=== PATIENT | female | born 1930 | race Caucasian/White ===

== ENCOUNTER 2016-11-06 07:11 | Emergency (ER) | payer OTHER ==
[~2016-11-06 07:11] MED LIST: ENAL5TAB PO; METO25; PRAV20 PO
[2016-11-06 07:14] VITALS: BP 186/103; PULSE 72; RESP 17; TEMP 97.5; O2SAT 99
[2016-11-06] MEDS ORDERED: CYCLOBENZAPRINE HCL 10 MG TAB PO ONE (07:30)
[2016-11-06] MEDS ORDERED: oxyCODONE/ACETAMINOPHEN 5 MG/325 MG TAB PO ONE (07:30)
--- NOTE | 2016-11-06 07:39 | PD ---
HPI Chief Complaint: Back/ Neck Pain or Injury Time Seen by Provider: 07:30 Travel History International Travel<30 days: No Contact w/Intl Traveler<30days: No Traveled to known affect area: No History of Present Illness HPI Patient is an 86-year-old female who presents to emergency room with complaints of left-sided scapular pain. Patient reports that her symptoms began after she helped bring her friends to the hospital. Patient reports that she had to assist her friend as her friend was having difficulty with ambulation, reports that shortly thereafter, she began to have increased pains to her left scapula. Patient reports that she has been having pain with range of motion and movement to her left scapula. Denies fever/chills. Denies chest pain/sob. Reports that pain is intermittent in nature. PFSH Past Medical History Arthritis: Yes (HANDS) Heart Rhythm Problems: No Cancer: Yes (SKIN/CHEEK) Cardiovascular Problems: Yes High Cholesterol: Yes Congestive Heart Failure: No Diminished Hearing: No Endocrine: No Gastrointestinal Disorders: Yes (POSSIBLE GALLSTONES) Genitourinary: No Hypertension: Yes Immune Disorder: No Musculoskeletal: Yes Neurologic: No Psychiatric: No Reproductive: No Respiratory: No Influenza Vaccination: No ?: Not Menopausal: Yes Ovarian Cysts: Yes (OVERY REMOVED IN HER TWENTIES) Past Surgical History Abdominal Surgery: Yes (APPEDIX, REV=MOVAL OF OVERIES) Appendectomy: Yes Cardiac Surgery: No Hysterectomy: Yes (one ovary) Oral Surgery: No Social History Alcohol Use: Yes (ONE WINE DAILY) Tobacco Use: No (quit 30 years ago) Substance Use: No Allergies-Medications (Allergen,Severity, Reaction): Coded Allergies: No Known Allergies (Verified , 11/06/16) Reported Meds & Prescriptions Reported Meds & Active Scripts Active Ibuprofen 600 Mg Tab 600 Mg PO Q6H PRN Lortab (Hydrocodone-Acetaminophen) 5-325 Mg Tab 1 Tab PO Q4H PRN Flexeril (Cyclobenzaprine HCl) 5 Mg Tab 5 Mg PO TID Reported Metoprolol Tartrate 25 Mg Tab 25 Mg PO DAILY Review of Systems General / Constitutional: No: Fever Eyes: No: Visual changes HENT: No: Headaches Cardiovascular: No: Chest Pain or Discomfort Respiratory: No: Shortness of Breath Gastrointestinal: No: Abdominal Pain Genitourinary: No: Dysuria Musculoskeletal: Positive: Pain (left sided scapula pain) Skin: No Rash Neurologic: No: Weakness Psychiatric: No: Depression Endocrine: No: Polydipsia Hematologic/Lymphatic: No: Easy Bruising Physical Exam Narrative GENERAL: mild distress, nontoxic SKIN: Focused skin assessment warm/dry. HEAD: Atraumatic. Normocephalic. NECK: Trachea midline. No JVD. CARDIOVASCULAR: Regular rate and rhythm. No murmur appreciated. Patient with point tenderness to left scapula RESPIRATORY: No accessory muscle use. Clear to auscultation. Breath sounds equal bilaterally. GASTROINTESTINAL: Abdomen soft, non-tender, nondistended. Hepatic and splenic margins not palpable. MUSCULOSKELETAL: No obvious deformities. No clubbing. No cyanosis. No edema. NEUROLOGICAL: Awake and alert. No obvious cranial nerve deficits. Motor grossly within normal limits. Normal speech. PSYCHIATRIC: Appropriate mood and affect; insight and judgment normal. Data Data Last Documented VS Vital Signs Date Time Temp Pulse Resp B/P Pulse Ox O2 Delivery O2 Flow Rate FiO2 11/06/16 08:35 64 16 156/86 96 Room Air 195/103 11/06/16 07:14 97.5 Orders Ecg Monitoring (11/06/16 07:30) Bilateral Bp Monitoring (11/06/16 07:30) Oximetry (11/06/16 07:30) Chest, Pa & Lat (11/06/16 07:30) Oxycodone-Acetamin 5-325 Mg (Percocet (11/06/16 07:30) Cyclobenzaprine (Flexeril) (11/06/16 07:30) Basic Metabolic Panel (Bmp) (11/06/16 07:34) Complete Blood Count With Diff (11/06/16 07:34) Prothrombin Time / Inr (Pt) (11/06/16 07:34) Act Partial Throm Time (Ptt) (11/06/16 07:34) Sodium Chloride 0.9% Flush (Ns Flush) (11/06/16 07:45) Cta Thor Abd Aorta W Iv C W3d (11/06/16 08:44) Iohexol 350 Inj (Omnipaque 350 Inj) (11/06/16 09:55) Labs Laboratory Tests Test 11/06/16 07:50 White Blood Count 5.5 TH/MM3 Red Blood Count 5.03 MIL/MM3 Hemoglobin 15.5 GM/DL Hematocrit 46.1 % Mean Corpuscular Volume 91.7 FL Mean Corpuscular Hemoglobin 30.8 PG Mean Corpuscular Hemoglobin 33.6 % Concent Red Cell Distribution Width 12.6 % Platelet Count 189 TH/MM3 Mean Platelet Volume 7.6 FL Neutrophils (%) (Auto) 55.0 % Lymphocytes (%) (Auto) 32.6 % Monocytes (%) (Auto) 8.6 % Eosinophils (%) (Auto) 2.0 % Basophils (%) (Auto) 1.8 % Neutrophils # (Auto) 3.0 TH/MM3 Lymphocytes # (Auto) 1.8 TH/MM3 Monocytes # (Auto) 0.5 TH/MM3 Eosinophils # (Auto) 0.1 TH/MM3 Basophils # (Auto) 0.1 TH/MM3 CBC Comment DIFF FINAL Differential Comment Prothrombin Time 10.9 SEC Prothromb Time International 1.0 RATIO Ratio Activated Partial 25.6 SEC Thromboplast Time Sodium Level 136 MEQ/L Potassium Level 4.2 MEQ/L Chloride Level 102 MEQ/L Carbon Dioxide Level 26.3 MEQ/L Anion Gap 8 MEQ/L Blood Urea Nitrogen 17 MG/DL Creatinine 0.83 MG/DL Estimat Glomerular Filtration 65 ML/MIN Rate Random Glucose 119 MG/DL Calcium Level 9.3 MG/DL [facility] Medical Decision Making Medical Screen Exam Complete: Yes Emergency Medical Condition: Yes Interpretation(s) Vital Signs Date Time Temp Pulse Resp B/P Pulse Ox O2 Delivery O2 Flow Rate FiO2 11/06/16 07:14 97.5 72 17 186/103 99 Differential Diagnosis Left-sided scapular muscle strain, Aortic dissection (though unlikely), muscle strain, pneumothorax (though unlikely) Narrative Course Patient is an 86-year-old female who presents to emergency room with complaints of left sided scapular muscle skeletal pain. Patient reports that she was helping her friend ambulate to the emergency room yesterday around 5 PM, reports that shortly thereafter, she had increased pain to her left scapula. Reports that she thinks she may have pulled a muscle. Reports intermittent pain , she has not taken any pain medications at this time. Plan to give patient a dose of narcotic pain medication as well as muscle relaxor. Will x-ray the chest and obtain labs Laboratory Tests Test 11/06/16 07:50 White Blood Count 5.5 TH/MM3 (4.0-11.0) Red Blood Count 5.03 MIL/MM3 (4.00-5.30) Hemoglobin 15.5 GM/DL (11.6-15.3) Hematocrit 46.1 % (35.0-46.0) Mean Corpuscular Volume 91.7 FL (80.0-100.0) Mean Corpuscular Hemoglobin 30.8 PG (27.0-34.0) Mean Corpuscular Hemoglobin 33.6 % Concent (32.0-36.0) Red Cell Distribution Width 12.6 % (11.6-17.2) Platelet Count 189 TH/MM3 (150-450) Mean Platelet Volume 7.6 FL (7.0-11.0) Neutrophils (%) (Auto) 55.0 % (16.0-70.0) Lymphocytes (%) (Auto) 32.6 % (9.0-44.0) Monocytes (%) (Auto) 8.6 % (0.0-8.0) Eosinophils (%) (Auto) 2.0 % (0.0-4.0) Basophils (%) (Auto) 1.8 % (0.0-2.0) Neutrophils # (Auto) 3.0 TH/MM3 (1.8-7.7) Lymphocytes # (Auto) 1.8 TH/MM3 (1.0-4.8) Monocytes # (Auto) 0.5 TH/MM3 (0-0.9) Eosinophils # (Auto) 0.1 TH/MM3 (0-0.4) Basophils # (Auto) 0.1 TH/MM3 (0-0.2) CBC Comment DIFF FINAL Differential Comment Prothrombin Time 10.9 SEC (9.8-11.6) Prothromb Time International 1.0 RATIO Ratio Activated Partial 25.6 SEC Thromboplast Time (24.3-30.1) Sodium Level 136 MEQ/L (136-145) Potassium Level 4.2 MEQ/L (3.5-5.1) Chloride Level 102 MEQ/L (98-107) Carbon Dioxide Level 26.3 MEQ/L (21.0-32.0) Anion Gap 8 MEQ/L (5-15) Blood Urea Nitrogen 17 MG/DL (7-18) Creatinine 0.83 MG/DL (0.50-1.00) Estimat Glomerular Filtration 65 ML/MIN (>89) Rate Random Glucose 119 MG/DL (74-106) Calcium Level 9.3 MG/DL (8.5-10.1) Vital Signs Date Time Temp Pulse Resp B/P Pulse Ox O2 Delivery O2 Flow Rate FiO2 11/06/16 07:14 97.5 72 17 186/103 99 Last Impressions Chest X-Ray 11/06/16 0730 Signed Impressions: Service Date/Time: Sunday, November 06, 2016 07:41 - CONCLUSION: No acute disease. Norm Farmer MD Patient reevaluated, patient reports that she is feeling much better at this time. Patient reports complete resolution of symptoms. Labs as well as x-ray reviewed. Patient with no widened mediastinum on chest x-ray. Patient with point tenderness to her left scapula, pain began after she helped her friends who was "heavy" - pain most likely muscle skeletal nature. Plan to send patient home on pain medications and muscle relaxants. Will have patient return to emergency room if symptoms progress or worsen B/L arm BP: LUE: 156/86 RUE: 195/103 CTA ordered to evaluate for possible dissection Last Impressions Chest X-Ray 11/06/16 0730 Signed Impressions: Service Date/Time: Sunday, November 06, 2016 07:41 - CONCLUSION: No acute disease. Norm Farmer MD ct chest: no aortic dissection, there are patchy peripheral areas of increased density in the upper lobes, middle lobe and left lingula most likely related to post inflammatory changes. I did review all CT findings as well as incidental findings with patient detail. A copy patient CT report was given to her. Plan to treat patient for pneumonia, but patient felt her primary care doctor and return to emergency room as needed Diagnosis Primary Impression: Pain of left scapula Additional Impressions: Muscle strain of left scapular region Pneumonia Qualified Code: J18.9 - Pneumonia due to infectious organism, unspecified laterality, unspecified part of lung Patient Instructions: Narcotic given in the ED, General Instructions Additional Instructions: Please follow up with your primary care doctor in 2-3 days Return to the emergency room as needed or if symptoms worsen or progress Do not drive or operate heavy machinery while taking pain medication Please take all antibiotics as prescribed Scripts Azithromycin 500 Mg [id number] Mg PO DAILY #7 TAB Ref 0 Prov:Johanna Richmond DO 11/06/16 Ibuprofen 600 Mg [id number] Mg PO Q6H PRN (Pain/Inflammation) #40 TAB Ref 0 Prov:Johanna Richmond DO 11/06/16 Hydrocodone-Acetaminophen (Lortab)5-325 Mg Tab1 Tab PO Q4H PRN (PAIN) #10 TAB Ref 0 Prov:Johanna Richmond DO 11/06/16 Cyclobenzaprine (Flexeril)5 Mg Tab5 Mg PO TID #10 TAB Ref 0 Prov:Johanna Richmond DO 11/06/16 Disposition: 01 DISCHARGE HOME Johanna Richmond DO Nov 06, 2016 07:38
[2016-11-06] MEDS ORDERED: SODIUM CHLORIDE 0.9% FLUSH 10 ML FLUSH IV FLUSH PRN (07:45)
--- NOTE | 2016-11-06 07:55 | RADHPO ---
EXAM DATE/TIME: 11/06/2016 07:41 [facility] COMPARISON: CHEST SINGLE AP, May 07, 2014, 1:32. INDICATIONS : Left posterior chest pains today MEDICAL HISTORY : None. SURGICAL HISTORY : None. ENCOUNTER: Initial ACUITY: 1 day PAIN SCORE: 9/10 LOCATION: Left posterior chest FINDINGS: PA and lateral views of the chest demonstrate the lungs to be symmetrically aerated without evidence of mass, infiltrate or effusion. The cardiomediastinal contours are unremarkable. Osseous structure s are intact. CONCLUSION: No acute disease. Norm Farmer MD on November 06, 2016 at 7:52 Board Certified Radiologist. This report was verified electronically.
[2016-11-06 08:01] LABS: BASOPHIL # 0.1 TH/MM3 (0-0.2); BASOPHIL % 1.8 % (0.0-2.0); EOSINOPHIL # 0.1 TH/MM3 (0-0.4); HEMATOCRIT 46.1 % (35.0-46.0); HEMO FLAGS DIFF FINAL; LYMPH % 32.6 % (9.0-44.0); LYMPHOCYTE # 1.8 TH/MM3 (1.0-4.8); MEAN CELL VOLUME 91.7 FL (80.0-100.0); MEAN CORPUSCULAR HEMOGLOBIN 30.8 PG (27.0-34.0); MEAN CORPUSCULAR HGB CONC 33.6 % (32.0-36.0); MONO % 8.6 % (0.0-8.0); PLATELET COUNT 189 TH/MM3 (150-450); RED BLOOD COUNT 5.03 MIL/MM3 (4.00-5.30); RED CELL DISTRIBUTION WIDTH 12.6 % (11.6-17.2); WHITE BLOOD COUNT 5.5 TH/MM3 (4.0-11.0)
[2016-11-06] MEDS ORDERED: METO25TA3 PO (08:05)
[2016-11-06 08:09] LABS: POTASSIUM 4.2 MEQ/L (3.5-5.1)
[2016-11-06 08:12] LABS: BICARBONATE 26.3 MEQ/L (21.0-32.0)
[2016-11-06 08:25] LABS: APTT (PATIENT) 25.6 SEC (24.3-30.1); PROTHROMBIN TIME - PATIENT 10.9 SEC (9.8-11.6)
[2016-11-06 08:35] VITALS: BP_SYST 156; BP_SYST 195; BP_DIAS 103; BP_DIAS 86; PULSE 64; RESP 16; O2SAT 96
[2016-11-06] MEDS ORDERED: CYCL5TAB PO (08:43)
[2016-11-06] MEDS ORDERED: IBUP-232 PO (08:43)
[2016-11-06] MEDS ORDERED: HYDR-3533 PO (08:43)
[2016-11-06] MEDS ORDERED: IOHEXOL 350 MG/ML 10 ML VIAL (for RAD DIAG) IV ONE (09:55)
--- NOTE | 2016-11-06 10:32 | RADHPO ---
EXAM DATE/TIME: 11/06/2016 09:29 [facility] COMPARISON: No previous studies available for comparison. INDICATIONS : Left sided scapular pain after lifting heavy object. Evaluate for dissection. IV CONTRAST: 70 cc Omnipaque 350 (iohexol) IV RADIATION DOSE: 21.96 CTDIvol (mGy) MEDICAL HISTORY : Cardiovascular disease. Hypertension. SURGICAL HISTORY : Appendectomy. Hysterectomy. ENCOUNTER: Initial ACUITY: 1 day PAIN SCALE: 10/10 LOCATION: Left scapula TECHNIQUE: Volumetric scanning was performed using a multi-row detector CT scanner. The data was post processed with a variety of visualization algorithms including full volume maximum intensity projection, multi -planar sliding thin slab reformation, curved planar reformation, and surface rendering techniques. Using automated exposure control and adjustment of the mA and/or kV according to patient size, radiat ion dose was kept as low as reasonably achievable to obtain optimal diagnostic quality images. FINDINGS: LUNGS: There some mild patchy peripheral density in the upper lobes bilaterally being more prominent on the right. There some similar changes in the left lingula and right middle lobe region. The lower lobes a re grossly clear. MEDIASTINUM: No abnormally enlarged lymph nodes by CT criteria. No axillary or hilar abnormalities are identified. Coronary artery calcifications are present. ABDOMEN: The liver and spleen are free of focal defects. The gallbladder and pancreas demonstrate no abnormali ty. The adrenal glands are normal. The kidneys demonstrate no evidence of solid renal mass or hydrone phrosis. No free fluid or abdominal masses are identified. No para-aortic adenopathy is seen. There i s degenerative change in the lumbar spine. PELVIS: No evidence of free fluid or pelvic mass. No abnormally enlarged inguinal or retroperitoneal lymph no carmen are present. The bladder is unremarkable. Colonic diverticula are seen. THORACIC AORTA: The thoracic aortic root is normal with normal branching of the great vessels. There is no evidence of aneurysm or dissection. Calcifications are seen throughout the arterial system. ABDOMINAL AORTA: The aorta is normal in caliber without aneurysm or dissection. The renal arteries are patent bilater ally. The proximal celiac and superior mesenteric arteries are patent and normal in diameter. PELVIC VESSELS: The internal iliac and external iliac vessels are patent without aneurysm or stenosis. CONCLUSION: 1. No aortic dissection is seen. There are calcifications seen throughout the arterial system. 2. Patchy peripheral areas of increased density in the upper lobes, right middle lobe and left lingul a likely related to postinflammatory change. 3. Colonic diverticula. Norm Farmer MD on November 06, 2016 at 10:24 Board Certified Radiologist. This report was verified electronically.
[2016-11-06] MEDS ORDERED: AZIT500T2 PO (10:37)
[2016-11-06] MEDS ORDERED: AZITHROMYCIN 250 MG TAB PO ONE (10:45)
== END 2016-11-06 10:54 | disposition home or self-care (01) ==
LOC: PHED 07:11
DX: M89.8X1 Other specified disorders of bone, shoulder (principal); S46.912A Strain of unspecified muscle, fascia and tendon at shoulder and upper arm level, left arm, initial encounter; J18.9 Pneumonia, unspecified organism; M79.602 Pain in left arm; X50.0XXA Overexertion from strenuous movement or load, initial encounter; Y93.F9 Activity, other caregiving; Y92.89 Other specified places as the place of occurrence of the external cause; Y99.2 Volunteer activity
CPT/HCPCS: 71020; 71275; 74174; 80048; 85025; 85610; 85730; 99284; Q9967

== ENCOUNTER 2017-07-16 19:31 | Emergency (ER) | payer OTHER ==
[~2017-07-16 19:31] MED LIST changes: +AZIT500T2 PO; +CYCL5TAB PO; -ENAL5TAB PO; +HYDR-3533 PO; +IBUP-232 PO; -METO25; +METO25TA3 PO; -PRAV20 PO
[2017-07-16 19:35] VITALS: BP 231/95; PULSE 76; RESP 20; TEMP 97.9; O2SAT 95
[2017-07-16] MEDS ORDERED: SODIUM CHLORIDE 0.9% FLUSH 10 ML FLUSH IVF PRN (20:00)
--- NOTE | 2017-07-16 20:06 | PD ---
HPI Chief Complaint: Cold / Flu Symptoms Time Seen by Provider: 19:58 Travel History International Travel<30 days: No Contact w/Intl Traveler<30days: No Traveled to known affect area: No History of Present Illness HPI The patient is a 89-year-old female that complains of cough productive of white sputum with slight shortness of breath and wheezing and elevated blood pressure. Her blood pressure medications consist of metoprolol 25 mg twice daily. She took her second dose of metoprolol at 3 PM today. She denies any fever. She does not smoke. PFSH Past Medical History Arthritis: Yes (HANDS) Heart Rhythm Problems: No Cancer: Yes (SKIN/CHEEK) Cardiovascular Problems: Yes High Cholesterol: Yes Congestive Heart Failure: No Diminished Hearing: No Endocrine: No Gastrointestinal Disorders: Yes (POSSIBLE GALLSTONES) Genitourinary: No Hypertension: Yes Immune Disorder: No Musculoskeletal: Yes Neurologic: No Psychiatric: No Reproductive: No Respiratory: No Menopausal: Yes Ovarian Cysts: Yes (OVERY REMOVED IN HER TWENTIES) Past Surgical History Abdominal Surgery: Yes (APPEDIX, REV=MOVAL OF OVERIES) Appendectomy: Yes Cardiac Surgery: No Hysterectomy: Yes (one ovary) Oral Surgery: No Social History Alcohol Use: Yes (ONE WINE DAILY) Tobacco Use: No (quit 30 years ago) Substance Use: No Allergies-Medications (Allergen,Severity, Reaction): Coded Allergies: No Known Allergies (Verified , 11/06/16) Reported Meds & Prescriptions Reported Meds & Active Scripts Active Azithromycin 500 Mg Tab 500 Mg PO DAILY Ibuprofen 600 Mg Tab 600 Mg PO Q6H PRN Reported Metoprolol Succinate ER 24 HR (Metoprolol Succinate) 25 Mg Tab 25 Mg PO BID Review of Systems Except as stated in HPI: all other systems reviewed are Neg Physical Exam Narrative GENERAL: The patient is alert, oriented 3 and slight respiratory distress. Her vital signs show oximetry 95% on room air and blood pressure 231/95 but are otherwise normal. SKIN: Focused skin assessment warm/dry. HEAD: Atraumatic. Normocephalic. EYES: Pupils equal and round. No scleral icterus. No injection or drainage. ENT: No nasal bleeding or discharge. Mucous membranes pink and moist. NECK: Trachea midline. No JVD. CARDIOVASCULAR: Regular rate and rhythm. No murmur appreciated. RESPIRATORY: No accessory muscle use. Bilateral wheezes are heard in all lung sparks-with widely scattered. Breath sounds equal bilaterally. GASTROINTESTINAL: Abdomen soft, non-tender, nondistended. Hepatic and splenic margins not palpable. MUSCULOSKELETAL: No obvious deformities. No clubbing. No cyanosis. No edema. NEUROLOGICAL: Awake and alert. No obvious cranial nerve deficits. Motor grossly within normal limits. Normal speech. PSYCHIATRIC: Appropriate mood and affect; insight and judgment normal. Data Data Last Documented VS Vital Signs Date Time Temp Pulse Resp B/P (MAP) Pulse Ox O2 Delivery O2 Flow Rate FiO2 07/16/17 22:39 76 20 124/72 (89) 94 07/16/17 21:01 98.4 2.00 07/16/17 20:10 Nasal Cannula Orders Orders Complete Blood Count With Diff (07/16/17 20:00) Basic Metabolic Panel (Bmp) (07/16/17 20:00) Urinalysis - C+S If Indicated (07/16/17 20:00) Iv Access Insert/Monitor (07/16/17 20:00) Ecg Monitoring (07/16/17 20:00) Oximetry (07/16/17 20:00) Oxygen Administration (07/16/17 20:00) Chest, Pa & Lat (07/16/17 20:00) Sodium Chloride 0.9% Flush (Ns Flush) (07/16/17 20:00) Albuterol-Ipratropium Neb (Duoneb Neb) (07/16/17 20:00) Hydralazine Inj (Apresoline Inj) (07/16/17 20:15) Influenzae A/B Antigen (07/16/17 21:13) Labs Laboratory Tests Test 07/16/17 20:20 07/16/17 20:45 White Blood Count 4.6 TH/MM3 Red Blood Count 4.47 MIL/MM3 Hemoglobin 13.5 GM/DL Hematocrit 41.9 % Mean Corpuscular Volume 93.8 FL Mean Corpuscular Hemoglobin 30.2 PG Mean Corpuscular Hemoglobin Concent 32.2 % Red Cell Distribution Width 12.5 % Platelet Count 169 TH/MM3 Mean Platelet Volume 7.2 FL Neutrophils (%) (Auto) 50.9 % Lymphocytes (%) (Auto) 30.8 % Monocytes (%) (Auto) 14.7 % Eosinophils (%) (Auto) 2.1 % Basophils (%) (Auto) 1.5 % Neutrophils # (Auto) 2.3 TH/MM3 Lymphocytes # (Auto) 1.4 TH/MM3 Monocytes # (Auto) 0.7 TH/MM3 Eosinophils # (Auto) 0.1 TH/MM3 Basophils # (Auto) 0.1 TH/MM3 CBC Comment DIFF FINAL Differential Comment Blood Urea Nitrogen 14 MG/DL Creatinine 0.72 MG/DL Random Glucose 115 MG/DL Calcium Level 8.8 MG/DL Sodium Level 131 MEQ/L Potassium Level 4.4 MEQ/L Chloride Level 98 MEQ/L Carbon Dioxide Level 24.7 MEQ/L Anion Gap 8 MEQ/L Estimat Glomerular Filtration Rate 77 ML/MIN [facility] Medical Decision Making Medical Screen Exam Complete: Yes Emergency Medical Condition: Yes Medical Record Reviewed: Yes Interpretation(s) The CBC is normal. The basic metabolic profile shows a sodium of 131 and GFR of 77 but is otherwise unremarkable. The chest x-ray shows no acute cardiopulmonary disease. The influenza A/B antigen is negative for flu a and flu B antigen. Differential Diagnosis Pneumonia, bronchitis, viral upper respiratory infection, flu syndrome, electrolyte disorder, anemia, bronchospasm Narrative Course The patient states she got slight relief with the DuoNeb treatments. She will be given an albuterol HFA. She has a persistent cough which is mostly nonproductive and will be given a cough syrup. The patient apparently has bronchitis with positive spasm. Diagnosis Primary Impression: Bronchitis with bronchospasm Additional Instructions: Keep your appointment with Dr. Kebede on Tuesday next week. If worse, please return to emergency department. Do not drink alcohol or drive on the cough syrup as this can make you sleepy. Med/Other Pt SpecificInfo: Prescription(s) given Scripts Albuterol 8.5 GM Inh (Proair Hfa 8.5 GM Inh) 90 Mcg/Act Aer 2 PUFF INH Q4-6H Y for SHORTNESS OF BREATH, #1 INHALER 0 Refills 108 mcg/actuation Prov: Pineda Silva MD 07/16/17 Xoaxbueokdpcleh-Vvdhstb-Cdqvrxdsflm Liq (Coditussin DAC Liq) 30-10-200 Mg/5ML Liqd 10 ML PO Q4H Y for COUGH AND/OR COLD SYMPTOMS, #120 ML 0 Refills Prov: Pineda Silva MD 07/16/17 Disposition: 01 DISCHARGE HOME Condition: Stable Pineda Silva MD Jul 16, 2017 20:06
[2017-07-16 20:07] VITALS: BP 187/92; PULSE 70; RESP 20; O2SAT 98
[2017-07-16] MEDS: RESP: ALBUTEROL 2.5 MG/IPRATROPIUM 0.5 MG NEB (SCH) INH ×3 (20:13→20:34)
[2017-07-16] MEDS ORDERED: hydrALAZINE HCL 20 MG/ML VIAL IV PUSH ONE (20:15)
[2017-07-16] MEDS ORDERED: METO1TAB42 PO (20:30)
[2017-07-16 20:32] LABS: AUTOMATED NEUTROPHIL # 2.3 TH/MM3 (1.8-7.7); BASOPHIL # 0.1 TH/MM3 (0-0.2); BASOPHIL % 1.5 % (0.0-2.0); EOSINOPHIL # 0.1 TH/MM3 (0-0.4); EOSINOPHIL % 2.1 % (0.0-4.0); HEMATOCRIT 41.9 % (35.0-46.0); HEMOGLOBIN 13.5 GM/DL (11.6-15.3); LYMPH % 30.8 % (9.0-44.0); LYMPHOCYTE # 1.4 TH/MM3 (1.0-4.8); MEAN CELL VOLUME 93.8 FL (80.0-100.0); MEAN CORPUSCULAR HEMOGLOBIN 30.2 PG (27.0-34.0); MEAN CORPUSCULAR HGB CONC 32.2 % (32.0-36.0); MEAN PLATELET VOLUME 7.2 FL (7.0-11.0); MONO % 14.7 % (0.0-8.0); MONOCYTE # 0.7 TH/MM3 (0-0.9); NEUT % 50.9 % (16.0-70.0); PLATELET COUNT 169 TH/MM3 (150-450); RED BLOOD COUNT 4.47 MIL/MM3 (4.00-5.30); RED CELL DISTRIBUTION WIDTH 12.5 % (11.6-17.2); WHITE BLOOD COUNT 4.6 TH/MM3 (4.0-11.0)
[2017-07-16 21:01] VITALS: BP 142/54; PULSE 85; RESP 20; TEMP 98.4; O2SAT 97
[2017-07-16 21:07] LABS: CALCIUM 8.8 MG/DL (8.5-10.1)
[2017-07-16 21:08] LABS: BICARBONATE 24.7 MEQ/L (21.0-32.0)
[2017-07-16 21:11] LABS: CREATININE 0.72 MG/DL (0.50-1.00)
--- NOTE | 2017-07-16 21:11 | RADRPT ---
EXAM DATE/TIME: 07/16/2017 20:25 [facility] COMPARISON: CHEST PA & LAT, November 06, 2016, 7:41. INDICATIONS : Cough, congestion, wheezing. MEDICAL HISTORY : Hypertension. SURGICAL HISTORY : None. ENCOUNTER: Initial ACUITY: 2 weeks PAIN SCORE: 0/10 LOCATION: Bilateral chest FINDINGS: The lungs are clear without infiltrate, nodule, or mass. There is no appreciable pleural effusion fo r technique. Heart and mediastinum are unremarkable. CONCLUSION: No acute cardiopulmonary disease. Alejandra Arellano MD on July 16, 2017 at 21:09 Board Certified Radiologist. This report was verified electronically.
[2017-07-16 22:39] VITALS: BP 124/72; PULSE 76; RESP 20; O2SAT 94
[2017-07-16] MEDS ORDERED: ALBUAER3 INH (22:50)
[2017-07-16] MEDS ORDERED: PSEU1LIQ20 PO (22:50)
[2017-07-16] MEDS ORDERED: guaiFENesin/CODEINE SYRUP 200 MG/20 MG/10 ML CUP PO ONE (23:00)
[2017-07-16 23:21] VITALS: BP 143/67
== END 2017-07-16 23:26 | disposition home or self-care (01) ==
LOC: PHED 19:31
DX: J40 Bronchitis, not specified as acute or chronic (principal); M19.049 Primary osteoarthritis, unspecified hand; E78.00 Pure hypercholesterolemia, unspecified; I10 Essential (primary) hypertension; Z79.899 Other long term (current) drug therapy
CPT/HCPCS: 71020; 80048; 85025; 87804; 94640; 94664; 96374; 99284; J0360